=== PATIENT | male | born 1970 | race Caucasian/White ===

== ENCOUNTER → 2017-02-26 | Outpatient (CLI) | payer MEDICARE, MEDICAID ==
[~2017-02-26] MED LIST: ADVAIR 100-501 EACH INH; ASPIRIN EC81 MG PO; COZAAR100 MG PO; COZAAR25 MG PO; COZAAR50 MG PO; CRESTOR10 MG PO; CYMBALTA30 MG PO; FLEXERIL10 MG PO; GLUCOTROL XL10 MG PO; HYDRODIURIL12.5 MG PO; LITHIUM CARBON300 MG PO; LUNESTA3 MG PO; MIRALAX17 GM PO; NIASPAN750 MG PO; PERCOCET 5-3251 EACH PO; PRILOSEC20 MG PO; PROVENTIL OR V6.7 GM INH; REQUIP1 MG PO; SEROQUEL400 MG PO; VENTOLIN INH; VITAMIN D1000 UNIT PO
== END | disposition disaster alternative care site (69) ==
LOC: GRAD 11:55
DX: E66.9 Obesity, unspecified (principal); N28.81 Hypertrophy of kidney; R11.0 Nausea; R74.0 Nonspecific elevation of levels of transaminase and lactic acid dehydrogenase [LDH]; R11.2 Nausea with vomiting, unspecified; R16.0 Hepatomegaly, not elsewhere classified; R16.1 Splenomegaly, not elsewhere classified

== ENCOUNTER → 2017-02-26 | Outpatient (CLI) | payer MEDICARE, MEDICAID | LOC: LGSMG 11:52 | DX: R11.2 Nausea with vomiting, unspecified (principal) ==